=== PATIENT | female | born 1935 | race Caucasian/White ===

== ENCOUNTER 2016-04-22 10:49 | Emergency (ER) | payer OTHER ==
[2016-04-22 11:12] VITALS: BP 140/76; PULSE 84; TEMP 98.1; BMI 28.1
--- NOTE | 2016-04-22 11:15 | PDOC ---
History of Present Illness - History of Present Illness Initial Comments: 04/22/16 11:25 The patient is an 80-year-old woman, from [facility], accompanied by nurse aide, with a significant past medical history of hypertension, hyperchoelsterolemia, gastroesophageal reflux disease, Alzheimer' s dementia and anxiety who presents to the emergency department via EMS for further evaluation of lower extremity pain status post fall. No loss of consciousness. Patient was getting up from her wheelchair when she fell forward and injured her head. She is on Aspirin. She recently underwent a right total hip and knee replacement on December of 2015, performed by Orthopedic Surgeon, Dr. Mino Morton. She currently complains of bilateral knee pain, neck pain and back pain. Nursing staff at bedside reports possible urinary tract infection. Allergies; Acetaminophen. Ciprofloxacin. Past Surgical History: right total hip and knee replacement (December of 2015) Social History: No tobacco, ETOH and recreational drug use. Primary Care Physician: Dr. Amy Raymond Orthopedic Surgeon: Dr. Mino Morton <Nicole Tinajero - Last Filed: 04/22/16 13:47> <Odalis Lyon - Last Filed: 04/22/16 14:30> - General Chief Complaint: Injury Stated Complaint: FALL Time Seen by Provider: 04/22/16 11:12 Past History <Nicole Tinajero - Last Filed: 04/22/16 13:47> - Past Medical History Anemia: No Asthma: No Cancer: No Cardiac Disorders: No CVA: No COPD: No CHF: No Dementia: Yes Diabetes: No GI Disorders: Yes (reflux) Disorders: No HTN: Yes Hypercholesterolemia: Yes Liver Disease: No Psychiatric Problems: Yes (anxiety) Seizures: No Thyroid Disease: No - Surgical History Abdominal Surgery: No Appendectomy: No Cardiac Surgery: No Cholecystectomy: No Lung Surgery: No Neurologic Surgery: No Orthopedic Surgery: Yes - Immunization History Immunization Up to Date: Yes - Psycho/Social/Smoking Cessation Hx Anxiety: No Suicidal Ideation: No Smoking History: Never smoked Number of Cigarettes Smoked Daily: 0 Cigars Per Day: 0 Information on smoking cessation initiated: No Hx Alcohol Use: No Drug/Substance Use Hx: No Substance Use Type: None <Odalis Lyon - Last Filed: 04/22/16 14:30> - Past Medical History Allergies/Adverse Reactions: Allergies Allergy/AdvReac Type Severity Reaction Status Date / Time acetaminophen [From Lortab] Allergy Verified 01/04/16 04:51 ciprofloxacin [From Cipro] Allergy Verified 01/04/16 04:51 ciprofloxacin HCl Allergy Verified 01/04/16 04:51 [From Cipro] hydrocodone bitartrate Allergy Verified 01/04/16 04:51 [From Lortab] oxycodone HCl Allergy Verified 01/04/16 04:51 [From OxyContin] Penicillins Allergy Verified 01/04/16 04:51 Home Medications: Ambulatory Orders Cholecalciferol (Vitamin D3) [D3-50] 50,000 unit PO MONTHLY 12/26/15 Citalopram Hydrobromide [Citalopram HBr] 20 mg PO DAILY 12/26/15 Dextran 70/Hypromellose/Pf [Artificial Tears Drops] 1 each OP TID 12/26/15 Gabapentin 600 mg PO HS 12/26/15 Lorazepam 0.5 mg PO BID 12/26/15 Melatonin 5 mg PO HS 12/26/15 Nystatin Cream [Mycostatin Cream -] 1 applic TP BID 12/26/15 Ranitidine [Zantac -] 150 mg PO HS 12/26/15 Simvastatin 10 mg PO HS 12/26/15 Aspirin Coated [Ecotrin -] 325 mg PO BID #90 tablet. 12/30/15 Ferrous Sulfate [Feosol] 325 mg PO BID #60 ud 12/30/15 Multivitamins [Multivit ([facility] Formulary)] 1 tab PO DAILY tab 12/30/15 Acetaminophen [Tylenol -] 650 mg PO Q6H PRN 01/04/16 Sennosides [Senna] 8.6 mg PO HS 01/04/16 Tramadol HCl [Ultram] 50 mg PO TID 01/04/16 Review of Systems - Review of Systems Able to Perform ROS?: Yes Comments:: 04/22/16 11:33 GENERAL/CONSTITUTIONAL: No fever or chills. No weakness. HEAD, EYES, EARS, NOSE AND THROAT: No change in vision. No ear pain or discharge. No sore throat. CARDIOVASCULAR: No chest pain or shortness of breath. RESPIRATORY: No cough, wheezing, or hemoptysis. GASTROINTESTINAL: No nausea, vomiting, diarrhea or constipation. GENITOURINARY: No dysuria, frequency, or change in urination. MUSCULOSKELETAL:+Right/left knee pain. Back pain. Neck Pain. <Nicole Tinajero - Last Filed: 04/22/16 13:47> *Physical Exam - Vital Signs Last Vital Signs Temp Pulse Resp BP Pulse Ox 98.1 F 84 20 140/76 98 04/22/16 11:03 04/22/16 11:03 04/22/16 11:03 04/22/16 11:03 04/22/16 11:03 <Nicole Tinajero - Last Filed: 04/22/16 13:47> - Vital Signs Last Vital Signs Temp Pulse Resp BP Pulse Ox 98.1 F 84 20 140/76 98 04/22/16 11:03 04/22/16 11:03 04/22/16 11:03 04/22/16 11:03 04/22/16 11:03 - Physical Exam Comments: GENERAL: Awake, alert, and oriented to person and place, in no acute distress HEAD: No signs of trauma EYES: PERRLA, EOMI, sclera anicteric, conjunctiva clear ENT: Auricles normal inspection, hearing grossly normal, nares patent, oropharynx clear without exudates. Moist mucosa NECK: Normal ROM, supple, no lymphadenopathy, JVD, or masses LUNGS: Breath sounds equal, clear to auscultation bilaterally. No wheezes, and no crackles HEART: Regular rate and rhythm, normal S1 and S2, no murmurs, rubs or gallops ABDOMEN: Soft, nontender, normoactive bowel sounds. No guarding, no rebound. No masses EXTREMITIES: R leg with large brace in place. No signs of trauma, no areas of tenderness. L leg with very small ecchymosis at the superior portion of the patella. No ligamentous instability, no effusion, no crepitus. Remainder of extremities with normal range of motion, no edema. No clubbing or cyanosis. No cords, erythema, or tenderness NEUROLOGICAL: Cranial nerves II through XII grossly intact. Normal speech. Gait not tested due to history of surgery, immobilization. SKIN: Warm, Dry, normal turgor, no rashes or lesions noted. <Odalis Lyon - Last Filed: 04/22/16 14:30> ED Treatment Course - LABORATORY CBC & Chemistry Diagram: 04/22/16 11:50 04/22/16 11:50 - RADIOLOGY Radiograph Interpretation: 04/22/16 13:47 EXAM: RAD/KNEE 3 POS-LEFT IMPRESSION: X-ray of the left knee 2 views. Status post total left knee replacement in satisfactory alignment. No acute fracture or dislocation is identified. There is no gross evidence of suprapatellar joint effusion. EXAM: CT/FACIAL BONES CT W/O CONTRAST IMPRESSION: CT scan of the facial bones without intravenous contrast. Coronal and sagittal reconstruction images were obtained. Motion artifacts are slightly limiting this exam. No gross fracture is identified. Both orbits are intact . 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 Paranasal sinuses are well aerated. No gross nasal bone fracture is identified. Mild deviation of the nasal septum towards the right. The mastoid air cells are well aerated. Degenerative hypertrophy around the odontoid process , mainly along its posterior margin. Moderate degenerative disc disease at C5- C6 level. Bilateral upper neck and submandibular subcentimeter lymph nodes are present which are nonspecific. [id number] CT/HEAD CT WITHOUT CONTRAST IMPRESSION: CT scan of the brain without intravenous contrast. Since 12/26/2015 , there remains moderate atrophy and ventricular dilatation. Lateral and third ventricles are more dilated than the fourth that may be due to central atrophy. Cannot rule out normal pressure hydrocephalus or aqueduct of Sylvius is stenosis /narrowing. Mild periventricular chronic microvascular ischemic changes are present. There is no shift of the midline structures. The calvarium is intact. The craniocervical junction appears unremarkable. Visualized paranasal sinuses and mastoid air cells are well aerated. 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 Lateral and third ventricles are again noted to be more dilated than the fourth that may be due to central atrophy. Differential diagnosis includes normal pressure hydrocephalus and aqueduct of Sylvius stenosis/ narrowing. Correlate clinically for further evaluation. <Nicole Tinajero - Last Filed: 04/22/16 13:47> - LABORATORY CBC & Chemistry Diagram: 04/22/16 11:50 04/22/16 11:50 <Odalis Lyon - Last Filed: 04/22/16 14:30> *DC/Admit/Observation/Transfer - Attestations Scribe Attestion: 04/22/16 11:35 Documentation prepared by Nicole Tinajero, acting as medical record librarians teacher for Odalis Lyon MD. <Nicole Tinajero - Last Filed: 04/22/16 13:47> - Discharge Dispostion Admit: No <Odalis Lyon - Last Filed: 04/22/16 14:30> Diagnosis at time of Disposition: Accidental fall Qualifiers: Encounter type: initial encounter Qualified Code(s): W19.XXXA - Unspecified fall, initial encounter - Discharge Dispostion Disposition: HOME Condition at time of disposition: Stable - Referrals Referrals: Amy Raymond MD [Primary Care Provider] - - Patient Instructions Printed Discharge Instructions: How to Prevent Falls
[2016-04-22] MEDS ORDERED: traMADol HCL 50 MG TABLET PO ONE (11:27)
[2016-04-22] MEDS ORDERED: traMADol HCL 50 MG TABLET ONE (11:44)
[2016-04-22 12:01] LABS: BASOPHIL 1.2 % (0-2.0); EOSINOPHIL 1.5 % (0-4.5); MCHC 32.6 g/dl (32.0-36.0); MEAN CELL VOLUME 85.8 fl (80-96); MEAN PLT VOLUME 7.7 fl (7.5-11.1); NEUTROPHILS 74.4 % (42.8-82.8); PLATELET COUNT 307 K/MM3 (134-434); RDW 15.5 % (11.6-15.6); WHITE BLOOD COUNT 7.3 K/mm3 (4.0-10.0)
[2016-04-22 12:17] LABS: URINE APPEARANCE CLEAR; URINE BILIRUBIN NEGATIVE (NEGATIVE); URINE COLOR YELLOW; URINE GLUCOSE (UA) NEGATIVE (NEGATIVE); URINE KETONE NEGATIVE (NEGATIVE); URINE LEUK ESTERASE NEGATIVE (NEGATIVE); URINE NITRITE NEGATIVE (NEGATIVE); URINE PROTEIN NEGATIVE (NEGATIVE); URINE UROBILINOGEN 4.0 E.U/dl E.U./dl (0.2-1.0)
[2016-04-22 12:18] LABS: URINE BLOOD 1+ (NEGATIVE)
[2016-04-22 12:19] LABS: URINE MUCUS RARE; URINE RBC 7 /hpf (0-3); URINE WBC <1 /hpf (3-5)
[2016-04-22 12:21] LABS: ALBUMIN 3.5 g/dl (3.4-5.0); ALK PHOS 136 U/L (45-117); ANION GAP 10 (8-16); BILIRUBIN,TOTAL 0.7 mg/dL (0.2-1.0); CALCIUM 8.8 mg/dL (8.5-10.1); CO2 26 mmol/L (21-32); CREATININE 0.3 mg/dL (0.55-1.02); GLUCOSE,RANDOM 93 mg/dL (74-106); SGOT/AST 20 U/L (15-37); SGPT/ALT 23 U/L (12-78); TOT PROT 6.4 g/dl (6.4-8.2)
== END 2016-04-22 16:33 | disposition home or self-care (01) ==
LOC: JER 10:49
DX: Z04.3 Encounter for examination and observation following other accident (principal); I10 Essential (primary) hypertension; E78.00 Pure hypercholesterolemia, unspecified; F41.9 Anxiety disorder, unspecified; F03.90 Unspecified dementia, unspecified severity, without behavioral disturbance, psychotic disturbance, mood disturbance, and anxiety; K21.9 Gastro-esophageal reflux disease without esophagitis; Z79.82 Long term (current) use of aspirin
CPT/HCPCS: 36415; 70450-TC; 70486-TC; 73562-TC-LT; 80053; 81003; 81015; 85025; 87086; 99281-25